=== PATIENT | female | born 1970 | race American Indian/Alaskan Native ===

== ENCOUNTER 2017-04-01 06:55 | Emergency (ER) | payer SELFPAY ==
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
[2017-04-01] MEDS ORDERED: Lidocaine 1% Inj (20ml) INFIL STA (09:37)
[2017-04-01] MEDS ORDERED: Lidocaine 1% Inj (20ml) ONE ×2 (09:46→13:21)
[2017-04-01] MEDS ORDERED: Lidocaine 2% w Epi 1:100,000 Inj IJ ONE ×2 (13:20→13:24)
[2017-04-01 14:44] VITALS: BP 154/96; PULSE 86; RESP 20; TEMP 98.1
[2017-04-01 15:01] VITALS: O2SAT 99
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
== END 2017-04-01 15:05 | disposition home or self-care (01) ==
LOC: C.ER 06:55
DX: S01.81XA Laceration without foreign body of other part of head, initial encounter (principal); S01.21XA Laceration without foreign body of nose, initial encounter; S02.2XXA Fracture of nasal bones, initial encounter for closed fracture; Y09 Assault by unspecified means; S22.32XA Fracture of one rib, left side, initial encounter for closed fracture; W18.30XA Fall on same level, unspecified, initial encounter; Y92.480 Sidewalk as the place of occurrence of the external cause; F10.129 Alcohol abuse with intoxication, unspecified; Y90.8 Blood alcohol level of 240 mg/100 ml or more
CPT/HCPCS: 12013; 21320; 70450; 70486; 71101; 90471; 90715; 99285; G0480